=== PATIENT | male | born 1980 | race Caucasian/White ===

== ENCOUNTER 2020-08-08 06:48 | Emergency (ER) | payer MEDICARE, SELFPAY ==
--- NOTE | ~2020-08-08 | XR_ITS ---
EXAMINATION: XR shoulder LT min 2V EXAM DATE: 08/08/2020 07:36 INDICATION: Left shoulder pain. unknown inj . TECHNIQUE: The following left shoulder projections obtained: frontal projection with internal rotatio n, frontal projection with external rotation, Grashey, and scapular Y view (4+ views). There is no p rior study for comparison. FINDINGS: No evidence of left shoulder rotator cuff calcific tendinosis. There is mild acromioclav icular joint primary osteoarthritis. There are no acute fractures or dislocations identified. There is no subcutaneous gas. The soft tissue is unremarkable. There are no radiopaque foreign bodies. IMPRESSION: Mild left acromioclavicular joint osteoarthritis. Reviewed, dictated and finalized at location [facility]
[2020-08-08 06:44] VITALS: BP 151/93; PULSE 105; RESP 20; TEMP 36.8; O2SAT 100
--- NOTE | 2020-08-08 07:39 | ED.UPPEXIN ---
HPI - Extremity Injury (Upper) General Chief Complaint: Extremity Injury, Upper Stated Complaint: shoulder pain Time Seen by Provider: 08/08/20 07:03 History of Present Illness HPI narrative: 40 yo male with h/o methamphetamine abuse presents to the ED for shoulder pain. He reports that he has severe pain i the posterior shoulder. No known injury. He says that he gets sore muscles sometimes from using meth, but this is worse. Related Data Allergies Allergy/AdvReac Type Severity Reaction Status Date / Time pantoprazole [From Protonix] Allergy Redness of Verified 08/08/20 06:49 Skin Review of Systems Review of Systems: All systems reviewed & are unremarkable except as noted in HPI and below Constitutional: Constitutional: Denies fever(s) and Denies weakness Eyes: Eyes: Reports no additional eye complaints ENT: Reports system reviewed and no additional complaints, except as documented Cardiovascular: Cardiovascular: Denies chest pain Respiratory: Respiratory: Denies dyspnea Gastrointestinal: Gastrointestinal: Denies nausea Musculoskeletal: Musculoskeletal: Reports back pain Neurologic: Denies numbness and Denies weakness [facility] Past Medical History Medical History (Updated 08/12/20 @ 12:29 by Byron Matute MD) Methamphetamine abuse Social History Social History Gender identity (if verbalized by the patient): Male Exam Const: General: no acute distress and alert Orientation/consciousness: patient oriented x3 HENMT: Head: normal to inspection Eyes: Pupils: Equal, round and reactive pupils present Neck: Neck: normal visual inspection Chest: Chest palpation & inspection: no tenderness Resp: Effort & Inspection: normal respiratory effort Auscultation: clear to auscultation bilaterally Cardio: Rate: regular rate Rhythm: regular rhythm GI: GI Palp: Yes Soft to palpation and No Tenderness to palpation present (GI) Back/Spine/Pelvis: Other: tender ness through left trapezius Skin: General skin exam: normal color Course Vital Signs Vital signs: Vital Signs Temperature 36.8 C 08/08/20 06:44 Pulse Rate 105 H 08/08/20 06:44 Respiratory Rate 20 08/08/20 06:44 Blood Pressure 151/93 H 08/08/20 06:44 Pulse Oximetry 100 08/08/20 06:44 Temperature 36.8 C 08/08/20 06:44 Pulse Rate 95 08/08/20 08:40 Respiratory Rate 16 08/08/20 08:40 Blood Pressure 142/84 H 08/08/20 08:40 Pulse Oximetry 99 08/08/20 08:40 MDM - Extremity Injury (Upper) MDM Narrative Medical decision making narrative: Exam benign. X-ray negative. Imaging Data Radiologist's impression: ITS Impressions Shoulder X-Ray 08/08/20 08:00 IMPRESSION: Mild left acromioclavicular joint osteoarthritis. Discharge Plan Discharge Clinical Impression: Left shoulder pain Patient Disposition: Home, Self-Care Condition: Stable Instructions: Shoulder Pain (ED) Prescriptions: New naproxen 500 mg tablet 500 mg PO BID PRN (Reason: pain) Qty: 30 RF: 0 Follow-up/Referrals: PHYSICIAN,[employer] [Primary Care Provider] -
[2020-08-08] MEDS: KETOROLAC (*BKC) 60 MG/2 ML VIAL IM (08:08)
[2020-08-08 08:40] VITALS: BP 142/84; PULSE 95; RESP 16; O2SAT 99
== END 2020-08-08 08:40 | disposition home or self-care (01) ==
PROVIDERS: Emergency Provider Emergency Medicine
DX: M25.512 Pain in left shoulder (principal); F15.10 Other stimulant abuse, uncomplicated; M19.012 Primary osteoarthritis, left shoulder
CPT/HCPCS: 73030; 96372; 99283; J1885